=== PATIENT | female | born 1995 | race Asian ===

== ENCOUNTER 2017-01-23 04:54 | Emergency (ER) | payer MEDICAID ==
[2017-01-23 05:22] LABS: BASOPHIL % 0.5 % (0-2); PLATELET COUNT 164 x10^3mcL (130-400); RED CELL DISTRIBUTION WIDTH 12.7 % (11.5-14.5)
[2017-01-23 05:28] LABS: CALCIUM 8.7 mg/dL (8.5-10.1); CARBON DIOXIDE 25.3 mmol/L (21-32); CHLORIDE SERUM 105 mmol/L (98-107); CREATININE SERUM 0.7 mg/dL (0.6-1.0); GFR1 > 60 mL/min; GLUCOSE SERUM 86 mg/dL (74-106); POTASSIUM SERUM 3.9 mmol/L (3.5-5.1); SODIUM SERUM 140 mmol/L (136-145)
[2017-01-23 05:35] LABS: ALBUMIN 3.9 g/dL (3.4-5.0); ALKALINE PHOSPHATASE 55 U/L (46-116); ALT/SGPT 22 U/L (14-59); AMYLASE 183 U/L (25-115); AST/SGOT 17 U/L (15-37); BILIRUBIN TOTAL 0.43 mg/dL (0.20-1.00); LIPASE 150 IU/L (73-393); TOTAL PROTEIN, SERUM 7.5 g/dL (6.4-8.2)
[2017-01-23 05:57] VITALS: BP 122/70
== END 2017-01-23 05:57 | disposition home or self-care (01) ==
LOC: ED 04:54
PROVIDERS: Emergency Medicine
DX: O21.0 Mild hyperemesis gravidarum (principal); O26.891 Other specified pregnancy related conditions, first trimester; Z3A.01 Less than 8 weeks gestation of pregnancy
CPT/HCPCS: J2765; J7030